=== PATIENT | female | born 1970 | race Caucasian/White ===

== ENCOUNTER → 2017-08-17 | Outpatient (CLI) | payer OTHER ==
--- NOTE | 2017-08-17 15:19 | DIAGNOSTIC IMAGING REPORT ---
ULTRASOUND ABDOMINAL WALL CLINICAL HISTORY: Ventral hernia. COMPARISON STUDY: No priors. FINDINGS: Real-time grayscale sonography of the lower abdominal wall is performed at the indicated site of interest. There is a nonreducible fat and bowel containing ventral hernia seen just to the left of midline in the ventral pelvis adjacent to a section scar. No fluid is identified in the hernia sac. IMPRESSION: There is a nonreducible fat and bowel containing ventral hernia in the pelvis as above. Electronically signed by: Luciano Farias M.D. 08/17/2017 3:18 PM Dictated Date/Time: 08/17/2017 3:16 PM
== END | disposition home or self-care (01) ==
LOC: C.ULTR 14:26
PROVIDERS: ATTEND Neuromusculoskeletal Medicine & OMM
DX: K43.9 Ventral hernia without obstruction or gangrene (principal)

== ENCOUNTER → 2017-08-26 | Outpatient (CLI) | payer OTHER ==
[~2017-08-26] MED LIST: OPTIRAY 320 IV PRN
--- NOTE | 2017-08-26 14:47 | DIAGNOSTIC IMAGING REPORT ---
CT OF THE ABDOMEN AND PELVIS WITH CONTRAST CLINICAL HISTORY: Incisional hernia. COMPARISON STUDY: Abdominal ultrasound August 17, 2017. TECHNIQUE: Following IV administration of 116 mL of Optiray-320, axial images of the abdomen and pelvis were obtained from the lung bases to the proximal femurs. Images were reviewed in the axial, sagittal, and coronal planes. IV contrast was administered without complication. A dose lowering technique was utilized adhering to the principles of ALARA. Oral contrast was administered. CT DOSE: 2171.96 mGy.cm FINDINGS: There is fatty infiltration of the liver. There is no biliary ductal dilatation status post cholecystectomy. The spleen, adrenal glands, kidneys and pancreas are normal. The caliber and wall thickness of small and large bowel are normal. The ovaries are not enlarged. There is no ascites. No pneumatosis, free air or portal venous gas is present. There is no abdominal or pelvic lymphadenopathy. Note is made of multiple ventral hernias. These include a left supraumbilical fat-containing hernia shown on image 272 of 516 that has a hernia neck which measures 1.5 cm, a right infraumbilical ventral hernia which contains fat and has a hernia neck of 2.5 cm, a right lower fat and small bowel containing ventral hernia with a neck that measures 5 cm and a left lower ventral fat and small bowel containing hernia with a neck and measures 4.9 cm. There is no resultant bowel obstruction. IMPRESSION: 1. Multiple ventral hernias, as detailed above, including a right lower ventral fat and small bowel containing hernia and a left lower ventral fat and small bowel containing hernia. Multiple additional fat-containing ventral hernias. 2. No bowel obstruction. 3. Fatty liver. Electronically signed by: Villa Brewer M.D. 08/26/2017 2:45 PM Dictated Date/Time: 08/26/2017 10:59 AM
== END | disposition home or self-care (01) ==
LOC: C.CTS 10:10
PROVIDERS: ATTEND Surgery
DX: K43.9 Ventral hernia without obstruction or gangrene (principal); K76.0 Fatty (change of) liver, not elsewhere classified

== ENCOUNTER → 2017-08-28 | Outpatient (CLI) | payer OTHER ==
[2017-08-28 09:33] LABS: BASO % 0.3 %; BASO ABS # 0.02 K/uL (0-0.2); EOS % 1.6 %; HEMATOCRIT 39.6 % (37-47); HEMOGLOBIN 13.1 g/dL (12.0-16.0); IG# 0.02 K/uL (0.00-0.02); LYMPH % 39.1 %; LYMPH ABS # 2.52 K/uL (1.2-3.4); MEAN CELL VOLUME 90.2 fL (80-100); MEAN CORPUSCULAR HEMOGLOBIN 29.8 pg (25-34); MEAN CORPUSCULAR HGB CONC 33.1 g/dl (32-36); MEAN PLATELET VOLUME 10.4 fL (7.4-10.4); MONO % 6.5 %; MONO ABS # 0.42 K/uL (0.11-0.59); NEUT % 52.2 %; NEUT ABS # 3.37 K/uL (1.4-6.5); PLATELET COUNT 295 K/uL (130-400); WHITE BLOOD COUNT 6.45 K/uL (4.8-10.8)
[2017-08-28 09:51] LABS: ALBUMIN 3.6 gm/dl (3.4-5.0); ALT/SGPT 39 U/L (12-78); BLOOD UREA NITROGEN 11 mg/dl (7-18); CALCIUM 8.8 mg/dl (8.5-10.1); CARBON DIOXIDE 30 mmol/L (21-32); GLUCOSE 94 mg/dl (70-99); POTASSIUM 3.4 mmol/L (3.5-5.1); SODIUM 138 mmol/L (136-145)
[2017-08-28 10:02] LABS: ALKALINE PHOSPHATASE 54 U/L (45-117); AST/SGOT 17 U/L (15-37); CHOLESTEROL 134 mg/dl (0-200); LDL CHOLESTEROL CALCULATED 66 mg/dl; TOTAL PROTEIN 7.5 gm/dl (6.4-8.2)
== END | disposition home or self-care (01) ==
LOC: C.LAB 07:57
PROVIDERS: ATTEND Neuromusculoskeletal Medicine & OMM
DX: Z00.00 Encounter for general adult medical examination without abnormal findings (principal); Z13.1 Encounter for screening for diabetes mellitus; Z13.220 Encounter for screening for lipoid disorders; E66.9 Obesity, unspecified

== ENCOUNTER 2017-10-22 07:18 | Day surgery (SDC) | payer OTHER ==
[2017-10-12 09:52] VITALS: BMI 48.0
--- NOTE | 2017-10-12 10:22 | PAT Medication Instructions ---
Service Date Oct 12, 2017. Current Home Medication List Albuterol Sulfate (Proair Respiclick), 2 PUFFS INH QD PRN for Seasonal Allergies Hhvcu-F-Gamcggacqyoyw (Gas-X Prevention), 1 CAP PO QD PRN for excess gas Furosemide (Lasix), 20 MG PO QAM Hctz/Losartan (Hyzaar 12.5MG/100MG), 1 TAB PO QAM Lansoprazole (Prevacid), 15 MG PO QAM Medication Instructions For Your Scheduled Surgery - Hold the following medications the morning of surgery: Furosemide (Lasix), 20 MG PO QAM Hctz/Losartan (Hyzaar 12.5MG/100MG), 1 TAB PO QAM Yuate-J-Nyqqcadpfiuxe (Gas-X Prevention), 1 CAP PO QD PRN for excess gas - Take the following medications the morning of surgery with a sip of water: Albuterol Sulfate (Proair Respiclick), 2 PUFFS INH QD PRN for Seasonal Allergies (if needed) Lansoprazole (Prevacid), 15 MG PO QAM - Take the following medications as scheduled the night before surgery: Albuterol Sulfate (Proair Respiclick), 2 PUFFS INH QD PRN for Seasonal Allergies (if needed) If you have any questions please call us at [phone] or [phone] or [phone]
[2017-10-12 11:17] LABS: PTT PATIENT 25.1 SECONDS (21.0-31.0)
--- NOTE | 2017-10-12 11:21 | DIAGNOSTIC IMAGING REPORT ---
CHEST 2 VIEWS ROUTINE CLINICAL HISTORY: PAT preoperative evaluation COMPARISON STUDY: No previous studies for comparison. FINDINGS: The bones soft tissues and hemidiaphragms are normal. The cardiomediastinal silhouette is normal. The lungs are clear. The pulmonary vasculature is normal. IMPRESSION: Negative chest. The above report was generated using voice recognition software. It may contain grammatical, syntax or spelling errors. Electronically signed by: Tim Eubanks M.D. 10/12/2017 11:19 AM Dictated Date/Time: 10/12/2017 11:18 AM
[2017-10-12 14:30] LABS: ALBUMIN 3.8 gm/dl (3.4-5.0); ALT/SGPT 29 U/L (12-78); AST/SGOT 12 U/L (15-37); BLOOD UREA NITROGEN 14 mg/dl (7-18); CALCIUM 9.6 mg/dl (8.5-10.1); CARBON DIOXIDE 30 mmol/L (21-32); CREATININE 0.65 mg/dl (0.60-1.20); GLUCOSE 90 mg/dl (70-99); POTASSIUM 3.7 mmol/L (3.5-5.1); SODIUM 138 mmol/L (136-145)
[2017-10-12 14:33] LABS: ALKALINE PHOSPHATASE 65 U/L (45-117); TOTAL PROTEIN 7.9 gm/dl (6.4-8.2)
[2017-10-22] VITALS (7 sets, daily range): BP systolic 108–174; BP diastolic 73–84; PULSE 55–86; TEMP 36.2–37.1; O2SAT 92–98; Ht 175.3 cm; Wt 147.3 kg
[~2017-10-22] VITALS: Ht 175.3 cm; Wt 147.3 kg
[~2017-10-22 07:18] MED LIST changes: +ALBU18002 INH; +ATROPINE SULFATE 0.1 MG/ML 5ML SYR IV PRN; +EpHEDrine SULFATE INJ 50 MG/ML AMP IV PRN; +FENTANYL CITRATE INJ 50 MCG/1 ML 2 ML VIAL IV PRN; +FURO-85 PO; +HYDROmorphone INJ 1 MG/ML SYR IV PRN; +LANS15CA6 PO; +LOSA100T33 PO; +ONDANSETRON INJ 2 MG/ML 2 ML VIAL IV PRN; -OPTIRAY 320 IV PRN; +PHENYLEPHRINE 100MCG/ML 5ML SYR IV PRN; +PROMETHAZINE HCL INJ 12.5 MG in SODIUM CHLORIDE 0.9% 50ML 50 ML IV PRN; +[UNRECOGNIZED DRUG - CODE] PO
[2017-10-22] MEDS ORDERED: CEFAZOLIN SOD 2000MG/15 ML IV PUSH IV ONE (07:34)
[2017-10-22] MEDS ORDERED: MIDAZOLAM HCL 1 MG/ML 2ML VIAL ONE (09:02)
[2017-10-22] MEDS ORDERED: FENTANYL CITRATE INJ 50 MCG/1 ML 2 ML VIAL ONE ×2 (09:02→12:03)
--- NOTE | 2017-10-22 09:27 | History & Physical Bridge Note ---
H&P Re-Evaluation Bridge Note: I have examined the patient, reviewed the History & Physical and in the interval since the performance of the History & Physical I have noted the following changes of clinical significance: No changes noted
[2017-10-22] MEDS ORDERED: ACETAMINOPHEN 1000 MG/100 ML IV IV ONE (09:34)
[2017-10-22] MEDS ORDERED: BUPIVACAINE 0.5 % 5 MG/1 ML MPF 30ML VIAL ONE (09:47)
[2017-10-22] MEDS ORDERED: HYDROmorphone INJ 2 MG/ML SYR/VIAL ONE (10:13)
[2017-10-22] MEDS ORDERED: BUPIVACAINE LIPOSOME 1/3% 266 MG/20 ML VIAL INFIL ONE (10:25)
[2017-10-22] MEDS ORDERED: ONDANSETRON INJ 2 MG/ML 2 ML VIAL ONE (10:30)
[2017-10-22] MEDS ORDERED: DEXAMETHASONE SOD INJ 4 MG/ML VIAL ONE (10:30)
[2017-10-22] MEDS ORDERED: PROPOFOL IV EMULSION 10 MG/ML 20 ML VIAL IV ONE ×2 (10:30→13:06)
[2017-10-22] MEDS ORDERED: LIDOCAINE HCL 2% 2 ML VIAL (20MG/ML) ONE (10:30)
[2017-10-22] MEDS ORDERED: NEOSTIGMINE METHYLSULFATE 5 MG/5 ML SYR ONE (10:30)
[2017-10-22] MEDS ORDERED: GLYCOPYRROLATE INJ 0.2 MG/ML VIAL ONE (10:30)
[2017-10-22] MEDS ORDERED: CEFAZOLIN SOD 1 GM VIAL ONE (10:40)
[2017-10-22] MEDS ORDERED: LABETALOL HCL IV 5 MG/ML 20ML IV ONE (13:24)
[2017-10-22] MEDS ORDERED: ROCURONIUM BROMIDE 10 MG/ML 5 ML VIAL IV ONE (13:25)
--- NOTE | 2017-10-22 13:33 | [facility] Post Operative Brief Note ---
Immediate Operative Summary Operative Date Oct 22, 2017. Pre-Operative Diagnosis Recurrent Incisional hernias Post-Operative Diagnosis Incarcerated, recurrent incisional hernias Procedure(s) Performed Laparoscopic Incisional Hernia Repair with mesh Surgeon Dr. Felton Public Housing Interviewer Surgeon(s) Elena Hill PA-C Estimated Blood Loss 25 cc Findings Consistent with Post-Op Diagnosis Multiple fascial defects. 25 x 20 cm ventral light mesh placed Specimens A: hernia sacs Drains None Anesthesia Type General Complication(s) none Disposition Accompanied Pt To Recover: no Disposition: Recovery Room / PACU
[2017-10-22] MEDS ORDERED: MoRPHine SULFATE 4 MG/ML 1 ML CARP\\VIAL IV PRN (13:45)
[2017-10-22] MEDS ORDERED: MoRPHine SULFATE 2 MG/ML CARP IV PRN ×2 (13:45)
[2017-10-22] MEDS ORDERED: OXYCODONE/ACETAMINOPHEN 5-325 TAB PO PRN ×2 (13:45)
[2017-10-22] MEDS ORDERED: ONDANSETRON INJ 2 MG/ML 2 ML VIAL IV PRN (13:45)
--- NOTE | 2017-10-22 13:51 | Discharge Instructions ---
Discharge Instructions Date of Service Oct 22, 2017. Admission Reason for Admission: Incisional Hernia Discharge Discharge Diagnosis / Problem: Incisional Hernia Discharge Goals Goal(s): Decrease discomfort, Improve function Activity Recommendations Activity Limitations: as noted below Lifting Limitations: no more than 10 pounds Exercise/Sports Limitations: until after follow-up appointment May Resume Sexual Activity: after follow-up appointment Shower/Bathe: tomorrow Driving or Machine Use: resume 3 days after discharge . Instructions / Follow-Up Instructions / Follow-Up Please call the General Surgery Clinic at [phone] to schedule an appointment to have your drain removed- drain should be removed next week. Please call the clinic with any questions or concerns. You may shower tomorrow, 10/23/2017. Current Hospital Diet Patient's current hospital diet: Clear Liquid Diet Discharge Diet Recommended Diet: Regular Diet Procedures Procedures Performed: Laparoscopic Incisional Hernia Repair with mesh Pending Studies Studies pending at discharge: yes List of pending studies: Pathology report. Laboratory Results Lipid Panel Test 08/28/17 08:00 Range/Units Triglycerides Level 155 H 0-150 mg/dl Cholesterol Level 134 0-200 mg/dl HDL Cholesterol 37 mg/dl Cholesterol/HDL Ratio 3.6 LDL Cholesterol, Calculated 66 mg/dl Medical Emergencies . Who to Call and When: Medical Emergencies: If at any time you feel your situation is an emergency, please call 911 immediately. . Non-Emergent Contact Non-Emergency issues call your: Primary Care Provider, Surgeon Call Non-Emergent contact if: temperature is above 101.5, your pain is not controlled, wound has increased drainage, wound has increased redness . "Provider Documentation" section prepared by Chelle Hill. .
--- NOTE | 2017-10-22 13:58 | [facility] Operative Report ---
Operative Report Operative Date Oct 22, 2017. Pre-Operative Diagnosis Recurrent Incisional hernias Post-Operative Diagnosis Incarcerated, recurrent incisional hernias Procedure(s) Performed Laparoscopic assisted recurrent incisional hernia repair, incarcerated Surgeon Dr. Felton Intermediate Project Manager Surgeon(s) Elena Hill PA-C Estimated Blood Loss 25 cc Findings 2 large lower fascial defects containing bowel. Additional midline defect and umbilical hernia defect. Hernias reduced laparoscopically, lower fascial defects closed with interrupted 0 Nurolon [id number]-kd-pbiff sutures. 25 x 20 cm ventral light mesh with echo PS placed and tacked into place with sorbafix. 7 mm flat DEDE drain placed at low midline incision. Specimens A: hernia sacs Drains 7 mm DEDE drain subcutaneous Anesthesia GETA Complication(s) None Disposition Recovery Room / PACU Indications 47-year-old morbidly obese female with recurrent incarcerated incisional hernia. Plan for laparoscopic assisted incisional hernia repair. The risks of the procedure were discussed, all questions were answered, and the patient agreed to proceed with surgery as planned. Description of Procedure The patient was properly identified, consented, and taken to the operating room where she was placed in the supine position. General endotracheal anesthesia was induced. SCDs and a safety belt were placed. Preoperative antibiotics were administered. A Shankar catheter was placed. The patient's abdomen was prepped and draped in the standard sterile fashion. Surgical timeout was performed and all parties were in agreement that this was the correct patient and procedure to be performed and we continued as planned. A stab incision was made in the left upper quadrant and the Veress needle was inserted. Saline drop test confirmed entry into the peritoneum. The abdomen was insufflated with carbon dioxide which the patient tolerated without incident. An incision was made in the right lateral abdomen. The abdomen was then entered using the Optiview technique and a 5 mm trocar. The laparoscope was inserted and no damage from initial trocar or Veress needle placement was noted, no gross abnormalities were noted within the 4 quadrants of the abdomen. 5 mm ports were then placed in the right upper quadrant and right lower quadrant. A 5 mm port was placed in the left upper quadrant, a 12 mm port was placed in the lateral left abdomen. The patient was placed in Trendelenburg position. The abdomen was explored and there was an umbilical defect containing preperitoneal fat, low midline defect containing preperitoneal fat, and 2 large lower midline fascial defects that contained small bowel. The bowel was reduced using a combination of blunt dissection and the harmonic. At this point we converted to open in order to repair the fascial defects. A midline incision was made along the lower incision and the hernia sacs were from surrounding tissue. The hernia sacs were divided and sent as specimen. The fascia anteriorly was cleared of investing tissue for several centimeters raising some cutaneous flaps. The 2 larger fascial defects were closed with interrupted [id number] 0 Nurolon sutures. We then returned the laparoscopic portion of the procedure. The total distance of the fascial defects were measured and was approximately 19 cm. A 25 x 20 cm piece of [employer] ST Echo PS mesh was chosen. It was dipped in saline and then rolled and placed into the abdomen. An Endo Close was then used to grasp the tubing and was brought up through the abdominal wall. Tubing was cut in the balloon for the echo positioning system was inflated. The mesh was oriented along the vertical axis and the mesh covered all the fascial defects with a few centimeters of overlap. This Sorbafix was then used to tack the mesh into place both superiorly and inferiorly. The balloon of the echo positioning system was then deflated and removed. The mesh was then tacked into place using a double crown technique. The abdomen was inspected and no other abnormalities were noted. Exparel was injected along the anterior abdominal wall. Ports were removed under direct visualization and the abdomen was allowed to collapse. The low midline skin incision was then irrigated. There was some redundant thin skin which was excised. 7 mm DEDE drain was then placed overlying the fascia and brought out through the right lower quadrant. It was secured into place with 3-0 nylon suture. Low midline incision was then closed in layers with a running 3-0 Vicryl suture for David's fascia, followed by interrupted 3- 0 Vicryl deep dermal sutures. Husam were then placed over the low midline incision. Port site incisions were closed with 4-0 Monocryl subcuticular sutures. Dermabond was placed over these incisions. A 12 mm port site fascia was closed with the mesh covered this defect. Sterile dressing was then applied to the low midline incision, and abdominal binder was placed around the incision. DEDE drain was hooked up to suction. Shankar catheter was removed. The patient was extubated in the operating room and taken to the PACU where she recovered without apparent incident. All sponge, instrument and needle counts were correct at the conclusion of the procedure. The patient tolerated the procedure well. The physician's criminal legal assistant was present and scrubbed for the entire to the case. She was critical for positioning the patient, prepping and draping, entry into the abdomen, driving the laparoscope, retraction and exposure, repair of the fascial defects, placement of the mesh, closure of the incisions, and placement of the dressings. I attest to the content of the Intraoperative Record and any orders documented therein. Any exceptions are noted below.
[2017-10-22] MEDS ORDERED: ALPHA D GALACTOSIDASE PO PRN (14:00)
[2017-10-22] MEDS ORDERED: ACETAMINOPHEN IV 100 ML IV PRN (14:00)
[2017-10-22] MEDS ORDERED: ALBUTEROL HFA 8 GM INHALER INH PRN (14:00)
--- NOTE | 2017-10-22 14:17 | Anesthesiology Progress Note ---
Anesthesia Post Op Note Date & Time Oct 22, 2017 at 14:17 Vital Signs Pain Intensity: 0 Vital Signs Past 12 Hours Date Time Temp Pulse Resp B/P (MAP) Pulse Ox O2 Delivery O2 Flow Rate FiO2 10/22/17 14:08 78 13 94 10/22/17 14:08 79 13 10/22/17 14:05 165/79 10/22/17 14:03 78 14 95 10/22/17 14:03 79 14 10/22/17 14:00 160/87 10/22/17 13:58 77 16 94 10/22/17 13:58 77 16 10/22/17 13:55 155/86 10/22/17 13:53 76 15 10/22/17 13:53 76 15 96 10/22/17 13:50 148/84 10/22/17 13:48 74 16 10/22/17 13:48 74 16 92 10/22/17 13:45 146/84 10/22/17 13:43 76 16 10/22/17 13:43 76 16 157/93 94 10/22/17 13:43 36.8 77 16 157/93 95 Oxymask 10 10/22/17 07:48 37.1 74 17 174/74 (107) 97 Room Air Notes Mental Status: alert / awake / arousable, participated in evaluation Pt Amnestic to Procedure: Yes Nausea / Vomiting: adequately controlled Pain: adequately controlled Airway Patency, RR, SpO2: stable & adequate BP & HR: stable & adequate Hydration State: stable & adequate Anesthetic Complications: no major complications apparent Awake, doing well, no complaints. VSS.
[2017-10-22] MEDS ORDERED: IV FLUIDS COMPLETED PRN (14:30)
[2017-10-22] MEDS: LACTATED RINGER'S 1000ML 1,000 ML IV SCH (16:56)
[2017-10-22] MEDS: KETOROLAC TROMETHAMINE 30 MG/ML VIAL IV SCH (18:07)
[2017-10-22] MEDS: CEFAZOLIN IV 3,000 MG in SYRINGE 0 ML IV SCH (18:07)
[2017-10-23] MEDS: LACTATED RINGER'S 1000ML 1,000 ML IV SCH ×2 (00:16→11:10)
[2017-10-23] MEDS: KETOROLAC TROMETHAMINE 30 MG/ML VIAL IV SCH ×2 (00:17→05:48)
[2017-10-23] MEDS: CEFAZOLIN IV 3,000 MG in SYRINGE 0 ML IV SCH (02:01)
[2017-10-23 03:35] VITALS: BP 137/64; PULSE 89; TEMP 36.9; O2SAT 95
[2017-10-23] MEDS ORDERED: NURSING VERBAL MED ORDER ONE (06:00)
[2017-10-23 07:16] VITALS: BP 119/68; PULSE 94; TEMP 36.9; O2SAT 94
[2017-10-23 08:29] LABS: BASO % 0.1 %; BASO ABS # 0.01 K/uL (0-0.2); HEMATOCRIT 32.5 % (37-47); HEMOGLOBIN 10.6 g/dL (12.0-16.0); IG# 0.06 K/uL (0.00-0.02); LYMPH % 16.7 %; LYMPH ABS # 2.21 K/uL (1.2-3.4); MEAN CORPUSCULAR HEMOGLOBIN 29.4 pg (25-34); MEAN CORPUSCULAR HGB CONC 32.6 g/dl (32-36); MEAN PLATELET VOLUME 9.1 fL (7.4-10.4); MONO % 5.8 %; MONO ABS # 0.77 K/uL (0.11-0.59); NEUT % 76.9 %; NEUT ABS # 10.17 K/uL (1.4-6.5); PLATELET COUNT 287 K/uL (130-400); RED CELL DISTRIBUTION WIDTH CV 13.4 % (11.5-14.5); RED CELL DISTRIBUTION WIDTH SD 43.8 fL (36.4-46.3); WHITE BLOOD COUNT 13.22 K/uL (4.8-10.8)
[2017-10-23 08:58] LABS: CREATININE 0.74 mg/dl (0.60-1.20)
[2017-10-23 08:59] LABS: CALCIUM 8.3 mg/dl (8.5-10.1); POTASSIUM 3.5 mmol/L (3.5-5.1)
[2017-10-23] MEDS ORDERED: ENOXAPARIN 40 MG/0.4 ML SYR SQ SCH (09:00)
[2017-10-23] MEDS ORDERED: HYDROCHLOROTHIAZIDE 25 MG TAB PO SCH (09:00)
[2017-10-23] MEDS ORDERED: PANTOprazole SOD 40 MG TAB PO SCH (09:00)
[2017-10-23] MEDS ORDERED: LOSARTAN POTASSIUM 50 MG TAB PO SCH (09:00)
--- NOTE | 2017-10-23 09:55 | Anesthesiology Progress Note ---
Anesthesia Post Op Note Date & Time Oct 23, 2017 at 09:54 Vital Signs Pain Intensity: 0.0 Vital Signs Past 12 Hours Date Time Temp Pulse Resp B/P (MAP) Pulse Ox O2 Delivery O2 Flow Rate FiO2 10/23/17 07:16 36.9 94 20 119/68 (85) 94 Room Air 10/23/17 03:35 36.9 89 16 137/64 (88) 95 Room Air 10/22/17 23:32 Room Air 10/22/17 22:56 37.0 86 18 108/73 (85) 92 Room Air Notes Mental Status: alert / awake / arousable, participated in evaluation Pt Amnestic to Procedure: Yes Nausea / Vomiting: adequately controlled Pain: adequately controlled Airway Patency, RR, SpO2: stable & adequate BP & HR: stable & adequate Hydration State: stable & adequate Anesthetic Complications: no major complications apparent
--- NOTE | 2017-10-23 11:46 | Surgery Progress Note ---
Surgery Progress Note Date of Service Oct 23, 2017. Subjective Post OP Day: 1 + feeling well, + pain controlled (toradol), + diet (regular), No nausea Objective Vital Signs: Date Time Temp Pulse Resp B/P (MAP) Pulse Ox O2 Delivery O2 Flow Rate FiO2 10/23/17 07:35 Room Air 10/23/17 07:16 36.9 94 20 119/68 (85) 94 Room Air 10/23/17 03:35 36.9 89 16 137/64 (88) 95 Room Air 10/22/17 23:32 Room Air 10/22/17 22:56 37.0 86 18 108/73 (85) 92 Room Air 10/22/17 17:45 36.5 85 20 162/78 (106) 96 Room Air 10/22/17 16:40 36.4 76 20 154/78 (103) 93 Nasal Cannula 3.5 10/22/17 16:25 Nasal Cannula 4.0 10/22/17 15:40 36.7 55 20 122/83 (96) 98 Nasal Cannula 3.5 10/22/17 15:10 36.2 80 20 141/84 (103) 92 Nasal Cannula 3.5 10/22/17 14:40 Nasal Cannula 10/22/17 14:40 Nasal Cannula 4.0 10/22/17 14:40 37.0 83 12 158/82 (107) 95 Nasal Cannula 4.0 10/22/17 14:30 130/83 10/22/17 14:26 74 12 10/22/17 14:26 75 12 94 10/22/17 14:25 152/87 10/22/17 14:21 76 16 10/22/17 14:21 36.7 10/22/17 14:21 75 16 93 10/22/17 14:20 142/93 10/22/17 14:19 78 16 93 10/22/17 14:19 78 16 10/22/17 14:15 155/79 10/22/17 14:14 76 16 10/22/17 14:14 76 16 93 10/22/17 14:10 154/80 10/22/17 14:09 77 16 93 10/22/17 14:09 77 16 10/22/17 14:08 78 13 94 10/22/17 14:08 79 13 10/22/17 14:05 165/79 10/22/17 14:03 78 14 95 10/22/17 14:03 79 14 10/22/17 14:00 160/87 10/22/17 13:58 77 16 94 10/22/17 13:58 77 16 10/22/17 13:55 155/86 10/22/17 13:53 76 15 10/22/17 13:53 76 15 96 10/22/17 13:50 148/84 10/22/17 13:48 74 16 10/22/17 13:48 74 16 92 10/22/17 13:45 146/84 10/22/17 13:43 76 16 10/22/17 13:43 76 16 157/93 94 10/22/17 13:43 36.8 77 16 157/93 95 Oxymask 10 Physical Exam: DEDE drainage (20 overnight) Abdomen: non distended, soft Incision(s): clean, dry Laboratory Results: Results Past 24 Hours Test 10/23/17 08:09 Range/Units White Blood Count 13.22 4.8-10.8 K/uL Red Blood Count 3.61 4.2-5.4 M/uL Hemoglobin 10.6 12.0-16.0 g/dL Hematocrit 32.5 37-47 % Mean Corpuscular Volume 90.0 80-100 fL Mean Corpuscular Hemoglobin 29.4 25-34 pg Mean Corpuscular Hemoglobin Concent 32.6 32-36 g/dl Platelet Count 287 130-400 K/uL Mean Platelet Volume 9.1 7.4-10.4 fL Neutrophils (%) (Auto) 76.9 % Lymphocytes (%) (Auto) 16.7 % Monocytes (%) (Auto) 5.8 % Eosinophils (%) (Auto) 0.0 % Basophils (%) (Auto) 0.1 % Neutrophils # (Auto) 10.17 1.4-6.5 K/uL Lymphocytes # (Auto) 2.21 1.2-3.4 K/uL Monocytes # (Auto) 0.77 0.11-0.59 K/uL Eosinophils # (Auto) 0.00 0-0.5 K/uL Basophils # (Auto) 0.01 0-0.2 K/uL RDW Standard Deviation 43.8 36.4-46.3 fL RDW Coefficient of Variation 13.4 11.5-14.5 % Immature Granulocyte % (Auto) 0.5 % Immature Granulocyte # (Auto) 0.06 0.00-0.02 K/uL Sodium Level 136 136-145 mmol/L Potassium Level 3.5 3.5-5.1 mmol/L Chloride Level 102 98-107 mmol/L Carbon Dioxide Level 29 21-32 mmol/L Anion Gap 5.0 3-11 mmol/L Blood Urea Nitrogen 17 7-18 mg/dl Creatinine 0.74 0.60-1.20 mg/dl Est Creatinine Clear Calc Drug Dose 149.5 ml/min Estimated GFR () 113.4 Estimated GFR (Non- 97.8 BUN/Creatinine Ratio 22.2 10-20 Random Glucose 92 70-99 mg/dl Calcium Level 8.3 8.5-10.1 mg/dl Assessment & Plan s/p multiple ventral hernia repairs tolerating diet will d/c home with drain dressing changed
[2017-10-23] MEDS ORDERED: OXYC-57 PO (11:47)
[2017-10-23 12:01] VITALS: BP 119/68; PULSE 94; TEMP 36.9; O2SAT 94
--- NOTE | 2017-10-28 08:22 | Discharge Summary ---
Discharge Summary Date of Service Oct 28, 2017. Admission Date/Reason Oct 22, 2017 at 13:47 Incisional Hernia. Discharge Date/Disposition Oct 23, 2017 Home Diagnosis Principal Diagnosis: Recurrent Incisional Hernias Procedure(s) Performed Lap-Assisted Recurrent Incisional Hernia Repair, Incarcerated with Mesh Placement with Dr. Felton. Medication Reconciliation New Medications: Oxycodone/Acetaminophen 5MG/325MG (Percocet 5MG/325MG) Tab 1-2 TABLETS PO Q4H PRN for Pain, #20 TAB Continued Medications: Albuterol Sulfate (Proair Respiclick) 108 Mcg/Act Aer 2 PUFFS INH QD PRN for Seasonal Allergies Ekqxz-Z-Pupgbdhwzmiiw (Gas-X Prevention) 1 Cap Cap 1 CAP PO QD PRN for excess gas Furosemide (Lasix) 20 Mg Tab 20 MG PO QAM, TAB Hctz/Losartan (Hyzaar 12.5MG/100MG) 1 Tab Tab 1 TAB PO QAM, TAB Lansoprazole (Prevacid) 15 Mg Capcr 15 MG PO QAM, CAP Admission Physical Exam As per Admitting History & Physical. Hospital Course Ms. Renae is a 47-year-old female who presented to [facility] for elective repair of recurrent incisional hernia repair, incarcerated. Pre-Op Diagnosis- Recurrent Incisional Hernias Post-Op Diagnosis- Incarcerated, Recurrent Incisional Hernias Procedure performed- Lap- Assisted Recurrent Incisional Hernia Repair, Incarcerated with Mesh Placement, 7 mm flat DEDE drain placed at low midline incision. Post-Operatively, patient was admitted for observation overnight for pain control. Patient did well overnight without any new complaints or concerns. Vital signs remained stable, Patient remained afebrile. POD #1 patient was deemed safe for discharge. Patient was discharged with DEDE drain in place. Return precautions reviewed with patient. Both written and verbal discharge instructions provided. Patient to follow-up in General Surgery Clinic next week for drain removal and incision check. Discharge Instructions Please refer to the electronic Patient Visit Report (Discharge Instructions) for additional information.
== END 2017-10-23 12:25 | disposition home or self-care (01) ==
LOC: C.ACU 07:18 → C.MSW 13:47 → ENRESERV 14:18
PROVIDERS: ADMIT Surgery; ATTEND Surgery
DX: K43.0 Incisional hernia with obstruction, without gangrene (principal); J45.909 Unspecified asthma, uncomplicated; E78.5 Hyperlipidemia, unspecified; K21.9 Gastro-esophageal reflux disease without esophagitis; E66.01 Morbid (severe) obesity due to excess calories; Z68.42 Body mass index [BMI] 45.0-49.9, adult; Z90.710 Acquired absence of both cervix and uterus; Z87.891 Personal history of nicotine dependence; I10 Essential (primary) hypertension

== ENCOUNTER → 2018-02-23 | Outpatient (CLI) | payer OTHER ==
[~2018-02-23] MED LIST changes: -ATROPINE SULFATE 0.1 MG/ML 5ML SYR IV PRN; -EpHEDrine SULFATE INJ 50 MG/ML AMP IV PRN; -FENTANYL CITRATE INJ 50 MCG/1 ML 2 ML VIAL IV PRN; -HYDROmorphone INJ 1 MG/ML SYR IV PRN; -ONDANSETRON INJ 2 MG/ML 2 ML VIAL IV PRN; +OXYC-57 PO; -PHENYLEPHRINE 100MCG/ML 5ML SYR IV PRN; -PROMETHAZINE HCL INJ 12.5 MG in SODIUM CHLORIDE 0.9% 50ML 50 ML IV PRN
== END | disposition home or self-care (01) ==
LOC: C.PAPS 18:32
PROVIDERS: ATTEND Obstetrics & Gynecology
DX: Z12.4 Encounter for screening for malignant neoplasm of cervix (principal)

== ENCOUNTER → 2018-03-16 | Outpatient (CLI) | payer OTHER ==
--- NOTE | 2018-03-17 13:37 | MAMMOGRAPHY REPORT ---
BILATERAL DIGITAL SCREENING MAMMOGRAM TOMOSYNTHESIS WITH CAD: 03/16/2018 CLINICAL HISTORY: Routine screening. Patient has no complaints. TECHNIQUE: The study was acquired using full field digital technology and interpreted from soft copy. Breast tomosynthesis in addition to standard 2D mammography was performed. Current study was also ev aluated with a Computer Aided Detection (CAD) system. COMPARISON: No prior exams were available for comparison. BREAST COMPOSITION: The tissue of both breasts is heterogeneously dense, which may obscure small mass es. FINDINGS: There is a 12 mm nodular asymmetry in the lateral, middle one third of the right breast delvis t is equivocal for a mass on the corresponding tomosynthesis images (CC tomosynthesis slice 10/85), f or which additional spot compression tomosynthesis views and possible ultrasound are recommended. A 7 mm nodular asymmetry is seen in the right breast on CC tomosynthesis slice 10/85 for which addition al spot compression tomosynthesis views and possible ultrasound are recommended. No other suspicious mass, architectural distortion or cluster of microcalcifications is seen. IMPRESSION: ACR BI-RADS CATEGORY 0: INCOMPLETE EVALUATION: NEED ADDITIONAL IMAGING EVALUATION The right breast asymmetries need additional imaging evaluation. The patient will be called to schedule an appointment. Some breast cancers are not detected with mammography. A negative mammographic report should not sissy y biopsy if a clinically suggestive mass is present. Debbie Barrientos M.D. ay/:03/16/2018 16:49:05 Senior Policy Associate: RT Philip(R)(M)(BD), [facility] letter sent: Addl Imaging 0 BI-RADS Code: ACR BI-RADS Category 0: Incomplete Evaluation: Need Additional Imaging Evaluation
== END | disposition home or self-care (01) ==
LOC: C.MAMM 15:22
PROVIDERS: ATTEND Obstetrics & Gynecology
DX: Z12.31 Encounter for screening mammogram for malignant neoplasm of breast (principal); R92.8 Other abnormal and inconclusive findings on diagnostic imaging of breast

== ENCOUNTER 2024-09-09 06:44 | Observation (INO) ==
--- NOTE | 2024-08-08 16:07 | PAT Medication Instructions ---
Medication Instructions Date of Service August 08, 2024 Home Medications Medication Instructions Recorded albuterol sulfate 90 mcg/actuation 2 puff inhalation Q4H PRN 08/21/22 aerosol inhaler (ProAir HFA) shortness of breath or wheezing #8.5 grams hydrochlorothiazide 50 mg tablet 50 mg PO QAM #90 tabs 08/19/23 meloxicam 15 mg tablet 15 mg PO QAM #90 tabs 08/19/23 pantoprazole 20 mg tablet,delayed 20 mg PO DAILYBB #90 tabs 08/19/23 release diphth,pertus(acell),tetanus 2.5 0.5 ml IM ONCE #0.5 mL 08/03/24 Lf unit-8 mcg-5 Lf/0.5mL IM syringe (Boostrix Tdap) pneumoc 20-roque conj-dip cr(PF) 0.5 0.5 ml IM ONCE #0.5 mL 08/03/24 mL IM syringe (Prevnar 20 (PF)) varicella-zoster glycoE [id number] 50 mcg IM ONCE #1 ea 08/03/24 adj(PF) 50 mcg/0.5 mL IM susp, kit (Shingrix (PF)) albuterol sulfate 90 mcg/actuation aerosol inhaler (ProAir HFA) 2 puff inhalation Q4H PRN hydrochlorothiazide 50 mg tablet 50 mg PO QAM meloxicam 15 mg tablet 15 mg PO QAM pantoprazole 20 mg tablet,delayed release 20 mg PO DAILY telmisartan 80 mg tablet 80 mg PO QAM Continue as directed pantoprazole 20 mg tablet,delayed release 20 mg PO DAILY ASK your surgeon for instructions meloxicam 15 mg tablet 15 mg PO QAM DO NOT take the morning of surgery hydrochlorothiazide 50 mg tablet 50 mg PO QAM telmisartan 80 mg tablet 80 mg PO QAM Take morning of surgery With a small sip of water, OTHERWISE NOTHING TO EAT OR DRINK AFTER MIDNIGHT: albuterol sulfate 90 mcg/actuation aerosol inhaler (ProAir HFA) 2 puff inhalation Q4H PRN(use if needed; please bring with you to hospital day of surgery if possible) Take evening before surgery albuterol sulfate 90 mcg/actuation aerosol inhaler (ProAir HFA) 2 puff inhalation Q4H PRN(if needed) Other Notes If you have any questions please call us at [phone] or [phone] or [phone] or [phone]
--- NOTE | 2024-08-16 11:01 | Anesthesiology Consultation ---
Date of Service August 16, 2024 Assessment & Plan (1) Encounter for pre-operative examination: - Infectious disease screening: Per assessment on 08/16/24- No known recent infectious disease contacts or current infectious disease symptoms. - Outpatient joint assessment: Pt currently scheduled for inpatient pathway. If surgeon requests review for outpatient joint pathway, patient is not recommended candidate for outpatient joint program from anesthesia standpoint based on available information. Chart Review Chart Review: Acceptable Risk for Surgery and Patient seen in Pre Admission Testing Teaching & Discussion Pre-Anesthesia Teaching/Discussion Notes: Instructed NPO after midnight before surgery,except medications with 15 cc of water. Medication instructions provided according to the PAT guidelines. History Surgery Operation Date: 09/09/24 07:00 Proposed Procedures p Left Total Knee Arthroplasty - Ritesh Bryant, Height/Weight Height: 5 ft 8 in Weight: 125.5 kg Allergies Allergy/AdvReac Type Severity Reaction Status Date / Time No Known Allergies Allergy Verified 08/03/24 07:48 Medications Home Medications Medication Instructions Recorded Confirmed Last Taken albuterol sulfate 90 mcg/actuation 2 puff inhalation Q4H PRN 08/21/22 08/03/24 Unknown aerosol inhaler (ProAir HFA) shortness of breath or wheezing #8.5 grams hydrochlorothiazide 50 mg tablet 50 mg PO QAM #90 tabs 08/19/23 08/03/24 Unknown meloxicam 15 mg tablet 15 mg PO QAM #90 tabs 08/19/23 08/03/24 Unknown pantoprazole 20 mg tablet,delayed 20 mg PO DAILYBB #90 tabs 08/19/23 08/03/24 Unknown release telmisartan 80 mg tablet 80 mg PO QAM 08/01/24 08/03/24 Unknown diphth,pertus(acell),tetanus 2.5 0.5 ml IM ONCE #0.5 mL 08/03/24 08/03/24 Unknown Lf unit-8 mcg-5 Lf/0.5mL IM syringe (Boostrix Tdap) pneumoc 20-roque conj-dip cr(PF) 0.5 0.5 ml IM ONCE #0.5 mL 08/03/24 08/03/24 Unknown mL IM syringe (Prevnar 20 (PF)) varicella-zoster glycoE vacc-[id number] 50 mcg IM ONCE #1 ea 08/03/24 08/03/24 Unknown adj(PF) 50 mcg/0.5 mL IM susp, kit (Shingrix (PF)) Wheeled Walker #1 ea 08/16/24 Unknown Past Medical History Medical History Asthma "Seasonal" Dyslipidemia Hx of migraines Hypertension Morbid obesity with BMI of 40.0-44.9, adult Osteoarthritis Exercise / Class Metabolic Activity II 4-5 Yardwork/Stairs/Walk up hill (one FS: No CP, no SOB) Past Family History Family History Other Adopted Family history unknown Past Surgical History Surgical History History of arthroscopy of left knee tendon repair History of section x2 History of esophagogastroduodenoscopy (EGD) History of partial hysterectomy History of tooth extraction History of wisdom tooth extraction Hx of colonoscopy S/P cholecystectomy S/P foot surgery, left S/P hernia repair x2 (one done with hysterectomy) S/P knee surgery left (ted procedure) Past Anesthesia History No Hx of Anesthesia Complications and No Family Hx of Anesthesia Complications (Adopted- unknown family hx) History of PONV No Hx of PONV and No Hx of Motion Sickness Social History Smoking Status: Never smoker Do You Dip or Chew Tobacco: No Smoking End Date: Quit 25 years ago Hx Alcohol Use: Yes (Very rare) Hx Substance Use: No substance use type: does not use Review of Systems Patient denies chest pain, shortness of breath, dyspnea on exertion, fever, chills, cough, wheezing, palpitations. Physical Exam Vital Signs BP 135/83 P 61 TEMP 97.7 SP02 97%RA RESP 16 Physical Full cervical extension range of motion. Full TMJ range of motion. TMD > 3.5 finger breaths Mallampati Score II Dentition: intact Lungs: clear throughout to auscultation Cardiac: regular rate and rhythm, no murmurs noted Spine: normal Carotid arteries: negative bruit Extremities: no LE edema Lab Results Anesthesia Preop Results Results Anesthesia Widget: WBC 8.76 K/ul (4.8-10.8) 07/20/24 Hgb 12.5 g/dl (12.0-16.0) 07/20/24 Hct 38.0 % (37.0-47.0) 07/20/24 Plt 338 K/uL (130-400) 07/20/24 Na 137 mmol/L (136-145) 07/20/24 K 3.9 mmol/L (3.5-5.1) 07/20/24 Cl 100 mmol/L (98-107) 07/20/24 CO2 28 mmol/L (21-32) 07/20/24 BUN 20 mg/dl (6-23) 07/20/24 Creat 0.82 mg/dl (0.6-1.2) 07/20/24 Glucose Level 87 mg/dl (70-99(Fasting)) 07/20/24 PT 11.6 Seconds (9.0-12.0) 08/16/24 PTT 27 Seconds (21-31) 08/16/24 INR 1.1 (0.9-1.1) 08/16/24 HA1c 5.6 % (4.5-5.6) 08/02/24 Blood Type A Negative 08/16/24 Antibody Screen NEGATIVE 08/16/24 Testing Electrocardiogram Date: 02/08/24 SB with first degree AVB at 58bpm. Moderate IVCD. Chest X-Ray Date: 08/16/24 Findings: + NAD
[~2024-09-09 06:44] MED LIST changes: -ALBU18002 INH; +BUPIVACAINE 0.25% PF 30 ML VIAL ONE; +BUPIVACAINE 0.5 % 5 MG/1 ML PF 10ML VIAL ONE; -FURO-85 PO; -LANS15CA6 PO; -LOSA100T33 PO; -OXYC-57 PO; -[UNRECOGNIZED DRUG - CODE] PO
[2024-09-09] MEDS: LR 60ML/HR IV SCH (07:46)
[2024-09-09] MEDS: FAMOTIDINE 20 MG TAB PO SCH (07:53)
[2024-09-09] MEDS: ACETAMINOPHEN 500 MG TAB PO SCH ×2 (07:53→14:06)
[2024-09-09] MEDS: GABAPENTIN 300 MG CAP PO SCH (07:53)
[2024-09-09] MEDS: LR 500ML BOLUS, THEN 15ML/HR IV SCH (07:54)
[2024-09-09] MEDS: dexAMETHasone**PF** 10 MG/ML VIAL IV SCH (07:55)
[2024-09-09] MEDS ORDERED: MIDAZOLAM HCL 1 MG/ML 2ML VIAL ONE (08:27)
[2024-09-09] MEDS ORDERED: fentaNYL citrate PF 100 MCG/2 ML VIAL ONE (08:27)
[2024-09-09] MEDS ORDERED: PROPOFOL IV EMULSION 10 MG/ML 20 ML VIAL IV ONE ×2 (08:27→10:45)
[2024-09-09] MEDS ORDERED: LIDOCAINE 2% 2 ML VIAL/AMP(20MG/ML) INFIL ONE (08:27)
[2024-09-09] MEDS ORDERED: ONDANSETRON INJ 2 MG/ML 2 ML VIAL ONE (08:27)
--- NOTE | 2024-09-09 08:46 | History & Physical Bridge Note ---
Date of Service September 09, 2024 History & Physical Bridge Note I have examined the patient, reviewed the History & Physical and in the interval since the performance of the History & Physical I have noted the following changes of clinical significance: no changes noted
[2024-09-09] MEDS ORDERED: PROMETHAZINE HCL 6.25 MG in SODIUM CHLORIDE 0.9% 50 ML IV PRN (08:56)
[2024-09-09] MEDS ORDERED: ATROPINE SULFATE 0.1 MG/ML 10ML SYR IV PRN (08:56)
[2024-09-09] MEDS ORDERED: fentaNYL citrate PF 100 MCG/2 ML VIAL IV PRN (08:56)
[2024-09-09] MEDS ORDERED: ONDANSETRON INJ 2 MG/ML 2 ML VIAL IV PRN ×2 (08:56→13:23)
[2024-09-09] MEDS ORDERED: ePHEDrine sulfate 50 MG/ML AMP IV PRN (08:56)
[2024-09-09] MEDS: TRANEXAMIC ACID 1,000 MG **IV Pre-op IV SCH (09:33)
[2024-09-09] MEDS: ceFAZolin 3000MG 3,000 MG/72.5 ML BAG IV SCH (09:46)
[2024-09-09] MEDS ORDERED: ePHEDrine sulfate 50 MG/5 ML SYR ONE (10:12)
[2024-09-09] MEDS: ORTHO JOINT ANESTHETIC ONE (10:18)
[2024-09-09] MEDS: ROPIV 0.5% 246mg, Ketorolac 30mg, EPINEPHrine 0.5mg in NSS INFIL SCH (10:50)
[2024-09-09] MEDS: TRANEXAMIC ACID 1,000 MG **IV Intra-op IV SCH (10:50)
--- NOTE | 2024-09-09 10:59 | Operative Report ---
PG Post Operative Report Pre & Post Diagnosis Operation Date: 09/09/24 09:00 Pre-Op Diagnosis: Left Knee Arthritis Post-Op Diagnosis: Left Knee Arthritis I identified the patient and participated in the time-out.: Yes Procedure Operation Date: 09/09/24 09:00 Actual Procedures p Left Total Knee Arthroplasty(Left) - Ritesh Bryant DO Surgeon Ritesh Bryant DO [employer] Kimani Geller PA-C Estimated Blood Loss 50 Findings Consistent with Post-Op Diagnosis Specimens Left femoral and tibial bone Description of Procedure Implants used: I used a Artur Persona total knee arthroplasty system with a size 7 PS femur, E tibia, 31 oval patella, and a size 12 CPS polyethylene bearing. All components were cemented in place with Biomet cement. Debbie arrived [facility] for the above procedure. She was seen in the preoperative holding area and the operative extremity was identified and signed. She was given a preoperative antibiotic, TXA, a spinal anesthetic and an adductor nerve block. She was taken back to the operating room and laid on the table in supine position. She was given basic sedation. The operative knee was then prepped and draped in sterile fashion. A timeout was done, and the patient and the operative extremity was properly identified. A midline incision was made directly over the patella. Dissection was taken down to the extensor mechanism. A medial parapatellar arthrotomy was used. The medial retinaculum was released and the fat pad was mostly excised. The knee wa s flexed and the ACL, PCL, and meniscus were removed. A drill was sent down the center of the femoral canal followed by an intramedullary blue. Off that blue a distal femoral cutting block was placed. 9 mm was resected off the distal femur at 5 of valgus. A posterior referencing AP sizing guide was then placed on the distal femur. The femur measured to be a size 7. 2 drill holes were placed in 3 of external rotation. A 4-in-1 cutting block was then impacted into place. Anterior, posterior, and chamfer cuts were then made. The proximal tibia was then exposed. An external tibial alignment guide was placed. A tibial cut guide was then anchored in place and the proximal tibia was then resected. The posterior aspect of the knee was then opened up and any additional meniscus fragments and osteophytes were removed. The tibia measured to be a size E. The tibial plate was then placed in the appropriate rotation and the tibia was drilled and punched. Trial components were then placed. I used a size 12 CPS polyethylene insert. The knee was brought through a full range of motion and felt to be stable. The peg holes for the femoral component were then drilled. The patella was then everted and 9 mm was resected off the posterior aspect of the patella. The patella measured to be a size 31 oval. 3 peg holes were then drilled. A trial patella was placed. The knee was once again brought through a full range of motion and felt to be stable. Trial components were then removed. The surrounding soft tissues were injected with 100 cc of an orthopedic pain control cocktail. All components were then cemented into place with Biomet cement. The final polyethylene insert was then snapped into place. Once cement was dry the tourniquet was deflated. Hemostasis was obtained. A dilute betadyne lavage was then done for 3 minutes. The joint was then irrigated with normal saline solution. The medial parapatellar arthrotomy was then closed with #1 Vicryl suture. The skin was closed with 2-0 Vicryl, 3-0V lock suture, and cosme. A soft compressive dressing was placed. She was then transferred to a hospital bed and taken to the postanesthesia care unit in stable condition. She tolerated the procedure well. Kimani Geller PA-C, was present for the entire procedure. He was critical for patient positioning, prepping, draping, retraction exposure, wound closure and application of sterile dressing. I attest to the content of the Intraoperative Record and any orders documented therein. Any exceptions are noted below.
--- NOTE | 2024-09-09 12:36 | XRay Report ---
XR knee LT 1 or 2V routine CLINICAL HISTORY: Postoperative evaluation. COMPARISON: Left knee radiographs October 07, 2022. FINDINGS: Alignment of the total left knee arthroplasty is anatomic. There is no periprosthetic frac ture or unexpected radiopaque foreign body. There are skin cosme. IMPRESSION: Expected findings following total left knee arthroplasty. ACT 112: Negative or not required by law. Electronically signed by: Villa Brewer M.D. 09/09/2024 12:30 PM
[2024-09-09] MEDS ORDERED: MAGNESIUM HYDROXIDE SUSP 30 ML UDC PO PRN (13:23)
[2024-09-09] MEDS ORDERED: METOCLOPRAMIDE HCL INJ 5 MG/ML 2 ML VIAL IV PRN (13:23)
[2024-09-09] MEDS ORDERED: bisacodyL 10 MG SUPP PR PRN (13:23)
[2024-09-09] MEDS ORDERED: ALBUTEROL HFA 8 GM INHALER INH PRN (13:23)
[2024-09-09] MEDS ORDERED: NALOXONE HCL 0.4 MG/1 ML VIAL/CARP IV PRN (13:23)
[2024-09-09] MEDS ORDERED: HYDROmorphone INJ 0.5 MG/0.5 ML SYR IV PRN (13:23)
[2024-09-09] MEDS: KETOROLAC TROMETHAMINE 15 MG/ML VIAL IV SCH (14:06)
--- NOTE | 2024-09-09 14:50 | Anesthesiology Progress Note ---
Date of Service September 09, 2024 Anesthesia Post Procedure Vital Signs Vital Signs: Temp Pulse Pulse Resp BP Pulse Ox O2 Del Method 09/09/24 14:34 36.5 C 77 18 121/81 97 Room Air 09/09/24 14:05 36.6 C 62 16 113/78 94 Room Air 09/09/24 13:30 36.6 C 69 18 138/81 97 Room Air 09/09/24 13:00 65 14 114/87 98 Room Air 09/09/24 12:45 69 14 120/78 98 Room Air 09/09/24 12:30 70 16 128/69 96 Room Air 09/09/24 12:15 62 18 121/76 94 Room Air 09/09/24 12:05 36.4 C L 63 14 129/82 95 Room Air 09/09/24 11:55 62 12 115/69 94 Room Air 09/09/24 11:45 58 L 12 125/70 99 Oxymask 09/09/24 11:35 60 12 122/66 99 Oxymask 09/09/24 11:25 36.3 C L 74 12 135/72 97 Oxymask 09/09/24 07:36 36.4 C L 68 20 139/87 99 Room Air O2 Flow Rate 09/09/24 14:34 09/09/24 14:05 09/09/24 13:30 09/09/24 13:00 09/09/24 12:45 09/09/24 12:30 09/09/24 12:15 09/09/24 12:05 09/09/24 11:55 09/09/24 11:45 3 09/09/24 11:35 3 09/09/24 11:25 6 09/09/24 07:36 Transfer of Care Handoff Completed per policy Notes Mental Status: alert / awake / arousable and participated in evaluation Patient Amnestic to Procedure: Yes Nausea / Vomiting: adequately controlled Pain: adequately controlled Airway Patency, RR, SpO2: stable & adequate BP & HR: stable & adequate Hydration State: stable & adequate Neuraxial Anesthesia: was administered and sensory block is resolving Anesthetic Complications: no major complications apparent and Pt Satisfied with anesthetic care
[2024-09-09] MEDS: ceFAZolin 2000MG 2,000 MG/15 ML SYR IV SCH (16:33)
[2024-09-09] MEDS: oxyCODONE HCL IR 5 MG TAB (IMMEDIATE RELEASE) PO PRN (17:45)
[2024-09-09] MEDS: DOCUSATE SODIUM 100 MG CAP PO SCH (20:06)
[2024-09-09] MEDS: ASPIRIN 81 MG ECTAB PO SCH (20:06)
[2024-09-09] MEDS: SENNA 8.6 MG TAB PO SCH (20:06)
[2024-09-09 22:27] VITALS: RESP 16
[2024-09-10] MEDS: PANTOprazole 40 MG TAB PO SCH (05:50)
[2024-09-10 07:05] VITALS: BP 129/76; PULSE 68; TEMP 97.9; O2SAT 97
[2024-09-10] MEDS: dexAMETHasone 4 MG TAB PO SCH (07:06)
[2024-09-10] MEDS: LOSARTAN POTASSIUM 50 MG TAB PO SCH (07:07)
[2024-09-10] MEDS: PROPRANOLOL HCL LA 80 MG CAPCR PO SCH (07:07)
[2024-09-10] MEDS: hydroCHLOROthiazide 25 MG TAB PO SCH (07:08)
[2024-09-10] MEDS: MULTIVITAMIN TAB PO SCH (07:08)
--- NOTE | 2024-09-10 07:41 | Orthopedic Progress Note ---
Date of Service September 10, 2024 Assessment & Plan (1) Status post left knee replacement: Overall she is doing very well. She is not having much pain in the left knee. She will be seen by physical therapy today for ambulation and range of motion exercises. The nursing staff can change her dressing after physical therapy. She is on aspirin for DVT prophylaxis. She can be discharged home later today. She will follow-up orthopedics in 2 weeks. Savanna Lewis was seen and examined at bedside this morning. Overall she is doing very well. She is not having much pain in the left knee. She has been up and ambulating to the bathroom. She has no complaints.. Review of Systems All systems reviewed & are unremarkable except as noted in HPI & below. Physical Exam On physical exam the left knee, the dressing is clean and dry. Her leg is out full extension. She has active dorsiflexion plantarflexion of her left ankle.. Results & Data Results & Data Laboratory Results . Diagnostic Findings Postoperative x-rays of the left knee show the prosthesis to be in anatomic alignment without any evidence of fracture, dislocation, or loosening.. PG Care Time/CCT Total # of Minutes Spent Total Time Spent with Patient: Total time spent is greater than 50% in coordination of care (as documented) at patient's floor/unit and/or counseling patient: Coding Level of Care Code 22396 Post Operative Follow-Up Diagnoses Status post left knee replacement Z96.652
--- NOTE | 2024-09-10 07:43 | Discharge Summary ---
Date of Service September 10, 2024 Principal Diagnosis Same as "Discharge Diagnosis" noted below under Discharge Instructions. Discharge Exam On physical exam the left knee, the dressing is clean and dry. Her leg is out full extension. She has active dorsiflexion plantarflexion of her left ankle.. Discharge Data Procedures Performed Operation Date: 09/09/24 09:00 Actual Procedures p Left Total Knee Arthroplasty(Left) - Ritesh Bryant DO Ordered Studies 09/09/24 05:00 US - OR guided needle placemen Routine Hospital Course (1) Status post left knee replacement: On September 09, 2024 Debbie arrived at [facility] and underwent a left knee replacement without complication. She had a spinal anesthetic. Postoperatively she was started on aspirin for DVT prophylaxis and transferred to the general orthopedic floors. Her hospital course was uneventful. On postop day #1, her vital signs were stable and her pain was well-controlled. She was able to participate well with physical therapy doing ambulation and range of motion exercises. She was then discharged to home. She will follow-up orthopedics in 2 weeks. PG Care Time/CCT Total # of Minutes Spent Total Time Spent with Patient: Total time spent is greater than 50% in coordination of care (as documented) at patient's floor/unit and/or counseling patient: Discharge Plan Discharge Items Patient Disposition: Home - Self-Care Reason For Visit: Left Knee Arthritis Discharge Diagnosis: Osteoarthritis left knee Activity: Per Instructions section Non-emergency contact: Surgeon Call non-emergency contact if: your wound has increased redness and your wound has increased drainage Follow-up/Referrals: Leandro Dejesus DO [Primary Care Provider] - Diet: Regular Addtl Attending Provider Instructions: Activity and Therapy Recommendations: * If you are using [facility] then therapy will be provided at your home until they feel you have accomplished all of your goals. * If you are using [facility] then Physical Therapy will be provided until they feel you are ready to start Outpatient Physical Therapy. * If you are not using home therapy then Outpatient Physical Therapy should start about 3-5 days from your day of surgery. Therapy will last about 6-10 weeks * It is important not to put a pillow under your knee when you are relaxing or sleeping. It is just as important to make sure you are getting your knee perfectly straight as it is to regain your knee bend. * You were shown a series of exercises in the hospital. Do these exercises three times each day including the exercises you were shown in physical therapy. * Get up and walk several times each day. For the first four weeks, try not to stand or walk for more than one hour at a time. If you do stand or walk for more than one hour, you will not hurt anything, but your leg will likely swell. * As you feel comfortable, you may change from the walker or crutches to a cane and then to independent walking. Medications: * Narcotic You will likely be sent home from the hospital with a prescription f or the narcotic pain medication that worked best throughout your stay. * Cefadroxil -take the antibiotic twice a day for 10 days to help prevent infection. * Aspirin Most patients will be required to take Aspirin 81mg twice a day for 6 weeks after surgery. This is obtained [id number] and a prescription is not necessary. * Other medications may be prescribed for specific circumstances. If you have any questions, please call the office at . * Resume previous home medications unless otherwise instructed TEDs/Elastic Stockings: The white elastic stockings help limit swelling and prevent blood clots from forming in your legs.~ The more you wear them, the more they work. Wear them for six weeks. Dressing Care: The dressing can be changed after physical therapy on postop day #1. Daily dry dressing changes for a few days, especially if the incision is still draining some. If the incision is not draining then you may leave the cosme open to air. If there is a little bit of drainage or if the cosme are getting stuck on your clothing then cover the incision with a dry dressing. The cosme will be removed at your 2 week follow-up appointment. Showering: You may shower 5 days from the day of surgery as long as the incision is no longer draining. You may shower with the cosme exposed. Let soapy water run over the cosme and pat them dry. Do not scrub or soak the incision. Diet: You may resume your previous diet. Things To Watch For: * Drainage from the incision site that occurs more than one week after your surgery. * Increased redness at the incision site. * Fever above 102 degrees Fahrenheit. * Unusual chest pain or shortness of breath. * Call [facility] at with any of the above problems Follow-Up Visit: Follow-up with Dr. Bryant's office 2-3 weeks after your day of surgery. We will remove your cosme and answer any questions. If you have any additional questions or concerns, Dr Bryant is usually in the office at the same time and will be available An appointment was probably scheduled when you signed-up for surgery in the office. If you have any questions call Office Instructions: More detailed instructions as well as Frequently Asked Questions were provided in a folder by our office when you signed-up for surgery. Please review these instructions when you get home. If you have any further questions or concerns, please feel free to call the office at [phone] Pending Studies at Discharge: No Stand-Alone Forms: My [facility], Smoking Cessation Medications and DC Order Prescriptions: New cefadroxil 500 mg capsule 500 mg PO BID 10 Days Qty: 20 0RF oxycodone 5 mg tablet 5 mg PO Q6H PRN (Reason: pain) Qty: 30 0RF aspirin 81 mg Tablet,Delayed Release (Dr/Ec) 81 mg PO BID 42 Days Qty: 84 0RF Continued (DME) Casey Elizondo Misc See Rx Instructions .MEDSUPPLY Qty: 1 0RF Rx Instructions: As directed albuterol sulfate 90 mcg/actuation HFA aerosol inhaler 2 puff INH Q4H PRN (Reason: shortness of breath or wheezing) Qty: 8.5 1RF hydrochlorothiazide 50 mg tablet 50 mg PO QAM Qty: 90 3RF meloxicam 15 mg tablet 15 mg PO QAM Qty: 90 3RF pantoprazole 20 mg tablet,delayed release (DR/EC) 20 mg PO DAILYBB Qty: 90 3RF Prevnar 20 (PF) 0.5 mL syringe 0.5 ml IM ONCE Qty: 0.5 0RF Boostrix Tdap 2.5-8-5 Lf-mcg-Lf/0.5mL syringe 0.5 ml IM ONCE Qty: 0.5 0RF Shingrix (PF) 50 mcg/0.5 mL suspension for reconstitution 50 mcg IM ONCE Qty: 1 0RF telmisartan [Micardis] 80 mg tablet 80 mg PO QAM propranolol 80 mg capsule,extended release 24hr 80 mg PO QAM Discharge Orders: Discharge Order (Routine); Ordered 09/10/24 Ordered By: Ritesh Bryant Admission Data Admit Date/Time: 09/09/24 11:25 Attending Provider: Ritesh Bryant Admit Provider: Ritesh Bryant Primary Care Provider: Leandro Dejesus
== END 2024-09-10 11:00 | disposition home or self-care (01) ==
LOC: ASU 06:44 → 3E 06:44